=== PATIENT | female | born 1955 | race Caucasian/White ===

== ENCOUNTER 2023-03-02 14:30 | Outpatient (RCR) | payer MEDICARE, SELFPAY ==
--- NOTE | 2022-12-10 12:02 | PT.OIE ---
Current Diagnoses Mixed incontinence (12/10/22) Fecal smearing (12/10/22) Visit Care Team Role Provider Type Blanco Stewart MD Primary Care Provider Non-Staff Specialty: Internal Medicine Address: [facility] [address], [place], [address] Email: Destiny Mckeon DO Attending Provider Non-Staff Family Provider Referring Provider Specialty: HIGHWAY MAINTAINER Address: [facility] [address], [place], [address] Email: Physical Therapy Initial Evaluation PT-OP-A Visit Information Start: 12/09/22 11:30 Freq: Status: Active Protocol: Document 12/10/22 09:47 AMB (Rec: 12/10/22 10:33 AMB [id number]) Out-Patient Physical Therapy Visit Information Visit Information Visit Type Initial Evaluation Visit Start Time 09:45 Visit Stop Time 10:30 Total Visit Minutes 45 Visit Number 1 PT-OP-B Current Condition Start: 12/09/22 11:30 Freq: Status: Active Protocol: Document 12/10/22 09:47 AMB (Rec: 12/10/22 10:33 AMB [id number]) Current Condition History of Current Condition Onset Date chronic Current Complaints Leaking History of Current Condition Had difficulty voiding with bowel movements after spinal surgery. R numbness in the leg. Then developed leaking with coughing about 10 years later. Urgency developed later. Gets up for nocturia 1x/night. 1x/day getting urge incontinence. Can leak a little bit with water aerobics . Does have fecal incontinence sometimes after a bowel movement, just liquid. Very rarely makes it the whole hour in the pool without having to void. Once a day for bowel movements. Personal Factors Other Personal Factors That May Effect Hx spinal cord tumor removal Therapy/Recovery C5-C6. PT-OP-I Pelvic Floor Start: 12/09/22 11:30 Freq: Status: Active Protocol: Document 12/10/22 09:47 AMB (Rec: 12/10/22 10:33 AMB [id number]) Pelvic Floor Assessment Urine Leakage Size Large Leakage Cause Cough,Sneeze,Urge Leaks Per Day 1 Nocturia 1 Urine Pad Type Maxi Pad Pelvic Clock Pelvic Clock 12-3 Atrophy Pelvic Clock 3-6 Atrophy Pelvic Clock 6-9 Atrophy Pelvic Clock 9-12 Atrophy Prolapse Cystocele Grade 1 Perineal Descent Resting Absent Bearing Absent Contraction Ability Voluntary Contraction Weak Voluntary Relaxation Weak Manual Muscle Testing Left 2 Manual Muscle Testing Right 2 Manual Muscle Testing Anterior 2 Manual Muscle Testing Posterior 2 Comments Pelvic Floor Comments Pt reported reduced sensation vaginally, difficult time with sensation throughout the pelvic girdle and R leg s/p spine surgery PT-OP-T Assessment and Plan Start: 12/09/22 11:30 Freq: Status: Active Protocol: Document 12/10/22 09:45 AMB (Rec: 12/21/22 12:02 AMB [id number]) Physical Therapy Assessment Rehab Potential Rehabilitation Potential Good Evaluation Complexity Number of Personal Factors/Comorbidities 1-2 Number of Body Systems Impaired 3 Clinical Presentation at Evaluation Evolving Impairments Impairments Functional Activities, Sensation,Strength Goals Two Impairment Continence Short Term Goal (STG) [place] will cough without leaking urine. STG Duration 5 weeks Custodial Goal (LTG) [place] will completely void her bowels without fecal incontinence. LTG Duration 10 weeks One Impairment Pelvic floor strength Short Term Goal (STG) [place] will contract her pelvic floor for 10 seconds in standing. STG Duration 5 weeks Custodial Goal (LTG) [place] will contract her pelvic floor muscles while moving from sitting to standing. LTG Duration 10 weeks Assessment Summary Assessment [place] attends physical therapy with symptoms of urgency frequency and stress incontinence. Both urinary and fecal. Fecal incontinence is generally after the daily bowel movement. Her pelvic floor is weak, and she has difficulty with sensation, likely related to her spinal cord tumor surgery. She did not show signs of rectocele, but did have mild cystocele. She will benefit from pelvic floor therapy for pelvic floor strengthening and urinary urgency and frequency reduction, although her reduced sensation may pose a limiting factor to her rehabilitation. Physical Therapy Plan Frequency and Duration Frequency of Treatment 1x/Week Duration of treatment (weeks) 10 Plan of Care Start Date 12/10/22 Plan of Care End Date 02/18/23 Therapeutic Interventions Therapeutic Interventions Home Exercise Program,Manual Therapy,Neuromuscular Re- education,Self-Care/Home Management,Therapeutic Activities,Therapeutic Exercises Modalities Biofeedback,Electric Stimulation Next Visit Focus/Plan Next Note Type Treatment Note Next Visit Plan sEMG vs progressive HEP started in seated vs supine. Follow up on urgency.
--- NOTE | 2022-12-10 12:03 | PT.OPPOC ---
Physical, Occupational & Speech Therapy At [facility] Current Diagnoses Mixed incontinence (12/10/22) Fecal smearing (12/10/22) Visit Care Team Role Provider Type Blanco Stewart MD Primary Care Provider Non-Staff Specialty: Internal Medicine Address: [facility] [address], [place], [address] Email: Destiny Mckeon DO Attending Provider Non-Staff Family Provider Referring Provider Specialty: PRINTING SHOP SUPERVISOR Address: [address], [place], [address] Email: Plan Of Care PT-OP-T Assessment and Plan Start: 12/09/22 11:30 Freq: Status: Active Protocol: Document 12/10/22 09:45 AMB (Rec: 12/21/22 12:02 AMB [id number]) Physical Therapy Assessment Rehab Potential Rehabilitation Potential Good Evaluation Complexity Number of Personal Factors/Comorbidities 1-2 Number of Body Systems Impaired 3 Clinical Presentation at Evaluation Evolving Impairments Impairments Functional Activities, Sensation,Strength Goals Two Impairment Continence Short Term Goal (STG) [place] will cough without leaking urine. STG Duration 5 weeks Residential Goal (LTG) [place] will completely void her bowels without fecal incontinence. LTG Duration 10 weeks One Impairment Pelvic floor strength Short Term Goal (STG) [place] will contract her pelvic floor for 10 seconds in standing. STG Duration 5 weeks Hand Cementer Goal (LTG) [place] will contract her pelvic floor muscles while moving from sitting to standing. LTG Duration 10 weeks Assessment Summary Assessment [place] attends physical therapy with symptoms of urgency frequency and stress incontinence. Both urinary and fecal. Fecal incontinence is generally after the daily bowel movement. Her pelvic floor is weak, and she has difficulty with sensation, likely related to her spinal cord tumor surgery. She did not show signs of rectocele, but did have mild cystocele. She will benefit from pelvic floor therapy for pelvic floor strengthening and urinary urgency and frequency reduction, although her reduced sensation may pose a limiting factor to her rehabilitation. Physical Therapy Plan Frequency and Duration Frequency of Treatment 1x/Week Duration of treatment (weeks) 10 Plan of Care Start Date 12/10/22 Plan of Care End Date 02/18/23 Therapeutic Interventions Therapeutic Interventions Home Exercise Program,Manual Therapy,Neuromuscular Re- education,Self-Care/Home Management,Therapeutic Activities,Therapeutic Exercises Modalities Biofeedback,Electric Stimulation Next Visit Focus/Plan Next Note Type Treatment Note Next Visit Plan sEMG vs progressive HEP started in seated vs supine. Follow up on urgency. Plan of Care Dates Plan of Care Start Date 12/10/22 Plan of Care End Date 02/18/23 Electronically Signed by: Dena Chappell, PT 12/21/22 [id number] If you are in agreement with this Plan of Care, please return a signed and dated copy. I have reviewed this Plan of Care and certify that the skilled therapy services above are required to meet the patient?s needs. Physician Signature Date Printed Name and Credentials Clinical Instructor Signature Printed Name and Credentials
--- NOTE | 2023-01-28 14:04 | PT.OTN ---
Current Diagnoses Mixed incontinence (01/28/23) Fecal smearing (01/28/23) Physical Therapy Treatment Note PT-OP-A Visit Information Start: 12/09/22 11:30 Freq: Status: Active Protocol: Document 01/28/23 12:01 AMB (Rec: 01/28/23 12:47 AMB [id number]) Out-Patient Physical Therapy Visit Information Visit Information Visit Type Treatment Note Visit Start Time 12:00 Visit Stop Time 12:45 Total Visit Minutes 45 Visit Number 2 PT-OP-B Current Condition Start: 12/09/22 11:30 Freq: Status: Active Protocol: Document 12/10/22 09:47 AMB (Rec: 12/10/22 10:33 AMB [id number]) Current Condition History of Current Condition Onset Date chronic Current Complaints Leaking History of Current Condition Had difficulty voiding with bowel movements after spinal surgery. R numbness in the leg. Then developed leaking with coughing about 10 years later. Urgency developed later. Gets up for nocturia 1x/night. 1x/day getting urge incontinence. Can leak a little bit with water aerobics . Does have fecal incontinence sometimes after a bowel movement, just liquid. Very rarely makes it the whole hour in the pool without having to void. Once a day for bowel movements. Personal Factors Other Personal Factors That May Effect Hx spinal cord tumor removal Therapy/Recovery C5-C6. PT-OP-C Subjective Start: 12/09/22 11:30 Freq: Status: Active Protocol: Document 01/28/23 12:01 AMB (Rec: 01/28/23 12:47 AMB [id number]) OP-PT Subjective Patient Comments Patient Comments Having a difficult time doing the exercises every day. One instance of urge incontinence in the last 2 months. PT-OP-I Pelvic Floor Start: 12/09/22 11:30 Freq: Status: Active Protocol: Document 12/10/22 09:47 AMB (Rec: 12/10/22 10:33 AMB [id number]) Pelvic Floor Assessment Urine Leakage Size Large Leakage Cause Cough,Sneeze,Urge Leaks Per Day 1 Nocturia 1 Urine Pad Type Maxi Pad Pelvic Clock Pelvic Clock 12-3 Atrophy Pelvic Clock 3-6 Atrophy Pelvic Clock 6-9 Atrophy Pelvic Clock 9-12 Atrophy Prolapse Cystocele Grade 1 Perineal Descent Resting Absent Bearing Absent Contraction Ability Voluntary Contraction Weak Voluntary Relaxation Weak Manual Muscle Testing Left 2 Manual Muscle Testing Right 2 Manual Muscle Testing Anterior 2 Manual Muscle Testing Posterior 2 Comments Pelvic Floor Comments Pt reported reduced sensation vaginally, difficult time with sensation throughout the pelvic girdle and R leg s/p spine surgery PT-OP-Q Treatments Start: 12/09/22 11:30 Freq: Status: Active Protocol: Document 01/28/23 13:57 AMB (Rec: 01/28/23 14:00 AMB [id number]) Therapeutic Exercises Sitting Exercises 2 Sitting Exercise Name long holds, quick flicks Reps/Minutes 2x10 1 Sitting Exercise Name sit to stand Reps/Minutes 2x10 Comments wiht pelvic floor contract Standing Exercises 1 Standing Exercise Name long holds, quick flicks in standing Reps/Minutes 2x10 PT-OP-T Assessment and Plan Start: 12/09/22 11:30 Freq: Status: Active Protocol: Document 01/28/23 12:01 AMB (Rec: 01/28/23 12:47 AMB [id number]) Physical Therapy Assessment Goals Two Impairment Continence Short Term Goal (STG) [place] will cough without leaking urine. STG Duration 5 weeks Intermediate Goal (LTG) [place] will completely void her bowels without fecal incontinence. LTG Duration 10 weeks One Impairment Pelvic floor strength Short Term Goal (STG) [place] will contract her pelvic floor for 10 seconds in standing. STG Duration 5 weeks Intermediate Goal (LTG) [place] will contract her pelvic floor muscles while moving from sitting to standing. LTG Duration 10 weeks Assessment Summary Assessment [place] is improving wiht her urgency, continues to go to the bathroom every 30 minutes with swimming. Would encourage her in standing exercises and to up her frequency of exercise. Limited sensation is a limiting factor. Physical Therapy Plan Frequency and Duration Frequency of Treatment 1x/Week Duration of treatment (weeks) 10 Plan of Care Start Date 12/10/22 Plan of Care End Date 02/18/23 Therapeutic Interventions Therapeutic Interventions Home Exercise Program,Manual Therapy,Neuromuscular Re- education,Self-Care/Home Management,Therapeutic Activities,Therapeutic Exercises Modalities Biofeedback,Electric Stimulation Next Visit Focus/Plan Next Note Type Treatment Note Next Visit Plan sEMG vs progressive HEP started in seated vs supine. Follow up on urgency.
--- NOTE | 2023-02-04 15:55 | PT.OTN ---
Current Diagnoses Mixed incontinence (02/04/23) Fecal smearing (02/04/23) Physical Therapy Treatment Note PT-OP-A Visit Information Start: 12/09/22 11:30 Freq: Status: Active Protocol: Document 02/04/23 14:34 AMB (Rec: 02/04/23 15:15 AMB [id number]) Out-Patient Physical Therapy Visit Information Visit Information Visit Type Treatment Note Visit Start Time 14:30 Visit Stop Time 15:15 Total Visit Minutes 45 Visit Number 3 PT-OP-B Current Condition Start: 12/09/22 11:30 Freq: Status: Active Protocol: Document 12/10/22 09:47 AMB (Rec: 12/10/22 10:33 AMB [id number]) Current Condition History of Current Condition Onset Date chronic Current Complaints Leaking History of Current Condition Had difficulty voiding with bowel movements after spinal surgery. R numbness in the leg. Then developed leaking with coughing about 10 years later. Urgency developed later. Gets up for nocturia 1x/night. 1x/day getting urge incontinence. Can leak a little bit with water aerobics . Does have fecal incontinence sometimes after a bowel movement, just liquid. Very rarely makes it the whole hour in the pool without having to void. Once a day for bowel movements. Personal Factors Other Personal Factors That May Effect Hx spinal cord tumor removal Therapy/Recovery C5-C6. PT-OP-C Subjective Start: 12/09/22 11:30 Freq: Status: Active Protocol: Document 02/04/23 14:34 AMB (Rec: 02/04/23 15:15 AMB [id number]) OP-PT Subjective Patient Comments Patient Comments Urgency is getting worse. PT-OP-I Pelvic Floor Start: 12/09/22 11:30 Freq: Status: Active Protocol: Document 12/10/22 09:47 AMB (Rec: 12/10/22 10:33 AMB [id number]) Pelvic Floor Assessment Urine Leakage Size Large Leakage Cause Cough,Sneeze,Urge Leaks Per Day 1 Nocturia 1 Urine Pad Type Maxi Pad Pelvic Clock Pelvic Clock 12-3 Atrophy Pelvic Clock 3-6 Atrophy Pelvic Clock 6-9 Atrophy Pelvic Clock 9-12 Atrophy Prolapse Cystocele Grade 1 Perineal Descent Resting Absent Bearing Absent Contraction Ability Voluntary Contraction Weak Voluntary Relaxation Weak Manual Muscle Testing Left 2 Manual Muscle Testing Right 2 Manual Muscle Testing Anterior 2 Manual Muscle Testing Posterior 2 Comments Pelvic Floor Comments Pt reported reduced sensation vaginally, difficult time with sensation throughout the pelvic girdle and R leg s/p spine surgery PT-OP-Q Treatments Start: 12/09/22 11:30 Freq: Status: Active Protocol: Document 02/04/23 14:34 AMB (Rec: 02/04/23 15:15 AMB [id number]) Therapeutic Exercises Sitting Exercises 2 Sitting Exercise Name long holds, quick flicks Reps/Minutes 2x10 1 Sitting Exercise Name sit to stand Reps/Minutes 2x10 Comments wiht pelvic floor contract Neuro Re-Education Treatment Other Activities sEMG Comments pt with poor ability to hold contraction, fades very quickly. PT-OP-T Assessment and Plan Start: 12/09/22 11:30 Freq: Status: Active Protocol: Document 02/04/23 14:34 AMB (Rec: 02/04/23 15:15 AMB [id number]) Physical Therapy Assessment Goals Two Impairment Continence Short Term Goal (STG) [place] will cough without leaking urine. STG Duration 5 weeks Quality Control Specialist Goal (LTG) [place] will completely void her bowels without fecal incontinence. LTG Duration 10 weeks One Impairment Pelvic floor strength Short Term Goal (STG) [place] will contract her pelvic floor for 10 seconds in standing. STG Duration 5 weeks Shelter Goal (LTG) [place] will contract her pelvic floor muscles while moving from sitting to standing. LTG Duration 10 weeks Assessment Summary Assessment max 12.4, avg 5.5 sEMG. Encouraged pt to work to increase time between voids, calming bladder, knowing that she recently voided and that if she is urinating for 5 seconds that her bladder was not full and that was a false sensation. Physical Therapy Plan Frequency and Duration Frequency of Treatment 1x/Week Duration of treatment (weeks) 10 Plan of Care Start Date 12/10/22 Plan of Care End Date 02/18/23 Therapeutic Interventions Therapeutic Interventions Home Exercise Program,Manual Therapy,Neuromuscular Re- education,Self-Care/Home Management,Therapeutic Activities,Therapeutic Exercises Modalities Biofeedback,Electric Stimulation Next Visit Focus/Plan Next Note Type Treatment Note Next Visit Plan sEMG vs progressive HEP started in seated vs supine. Follow up on urgency.
--- NOTE | 2023-02-11 21:32 | PT.OTN ---
Current Diagnoses Mixed incontinence (02/11/23) Fecal smearing (02/11/23) Physical Therapy Treatment Note PT-OP-A Visit Information Start: 12/09/22 11:30 Freq: Status: Active Protocol: Document 02/11/23 10:49 AMB (Rec: 02/11/23 11:31 AMB [id number]) Out-Patient Physical Therapy Visit Information Visit Information Visit Type Treatment Note Visit Start Time 10:45 Visit Stop Time 11:30 Total Visit Minutes 45 Visit Number 4 PT-OP-B Current Condition Start: 12/09/22 11:30 Freq: Status: Active Protocol: Document 12/10/22 09:47 AMB (Rec: 12/10/22 10:33 AMB [id number]) Current Condition History of Current Condition Onset Date chronic Current Complaints Leaking History of Current Condition Had difficulty voiding with bowel movements after spinal surgery. R numbness in the leg. Then developed leaking with coughing about 10 years later. Urgency developed later. Gets up for nocturia 1x/night. 1x/day getting urge incontinence. Can leak a little bit with water aerobics . Does have fecal incontinence sometimes after a bowel movement, just liquid. Very rarely makes it the whole hour in the pool without having to void. Once a day for bowel movements. Personal Factors Other Personal Factors That May Effect Hx spinal cord tumor removal Therapy/Recovery C5-C6. PT-OP-C Subjective Start: 12/09/22 11:30 Freq: Status: Active Protocol: Document 02/11/23 21:26 AMB (Rec: 02/28/23 21:30 AMB [id number]) OP-PT Subjective Patient Comments Patient Comments Pt reports she has made progress and can go 5-10 more minutes in the pool without needing to get out, hoping to continue to progress until she can go the whole hour- now needs to get out after about 40 min. PT-OP-I Pelvic Floor Start: 12/09/22 11:30 Freq: Status: Active Protocol: Document 12/10/22 09:47 AMB (Rec: 12/10/22 10:33 AMB [id number]) Pelvic Floor Assessment Urine Leakage Size Large Leakage Cause Cough,Sneeze,Urge Leaks Per Day 1 Nocturia 1 Urine Pad Type Maxi Pad Pelvic Clock Pelvic Clock 12-3 Atrophy Pelvic Clock 3-6 Atrophy Pelvic Clock 6-9 Atrophy Pelvic Clock 9-12 Atrophy Prolapse Cystocele Grade 1 Perineal Descent Resting Absent Bearing Absent Contraction Ability Voluntary Contraction Weak Voluntary Relaxation Weak Manual Muscle Testing Left 2 Manual Muscle Testing Right 2 Manual Muscle Testing Anterior 2 Manual Muscle Testing Posterior 2 Comments Pelvic Floor Comments Pt reported reduced sensation vaginally, difficult time with sensation throughout the pelvic girdle and R leg s/p spine surgery PT-OP-Q Treatments Start: 12/09/22 11:30 Freq: Status: Active Protocol: Document 02/11/23 21:26 AMB (Rec: 02/28/23 21:30 AMB [id number]) Therapeutic Exercises Sitting Exercises 2 Sitting Exercise Name long holds, quick flicks Reps/Minutes 2x10 1 Sitting Exercise Name sit to stand Reps/Minutes 2x10 Comments wiht pelvic floor contract Standing Exercises 1 Standing Exercise Name long holds, quick flicks in standing Reps/Minutes 2x10 PT-OP-T Assessment and Plan Start: 12/09/22 11:30 Freq: Status: Active Protocol: Document 02/11/23 10:49 AMB (Rec: 02/11/23 11:31 AMB [id number]) Physical Therapy Assessment Goals Two Impairment Continence Short Term Goal (STG) [place] will cough without leaking urine. STG Duration MET Assembler Camper Goal (LTG) [place] will completely void her bowels without fecal incontinence. LTG Duration 10 weeks One Impairment Pelvic floor strength Short Term Goal (STG) [place] will contract her pelvic floor for 10 seconds in standing. STG Duration 5 weeks Assembler Camper Goal (LTG) [place] will contract her pelvic floor muscles while moving from sitting to standing. LTG Duration MET Assessment Summary Assessment [place] has met half of her goals. Avg 8, max 17. for long holds. max 20 avg 8 for quick flicks. [place] has attended 4 visit of physical therapy. She has shown some improvement with her pelvic floor strength. her progress is limited by reduced sensation s/p spinal surgery. Her urgency does seem to be improving. Pt would like to follow up in a few weeks to reassess strength/urgency and to work on progressing exercise program. Physical Therapy Plan Frequency and Duration Frequency of Treatment 1x/Week Duration of treatment (weeks) 5 Plan of Care Start Date 02/11/23 Plan of Care End Date 03/11/23 Therapeutic Interventions Therapeutic Interventions Home Exercise Program,Manual Therapy,Neuromuscular Re- education,Self-Care/Home Management,Therapeutic Activities,Therapeutic Exercises Modalities Biofeedback,Electric Stimulation Next Visit Focus/Plan Next Note Type Treatment Note Next Visit Plan sEMG vs progressive HEP started in seated vs supine. Follow up on urgency.
--- NOTE | 2023-02-11 21:48 | PT.OPPOC ---
Physical, Occupational & Speech Therapy At [facility] Current Diagnoses Mixed incontinence (02/11/23) Fecal smearing (02/11/23) Visit Care Team Role Provider Type Blanco Stewart MD Primary Care Provider Non-Staff Specialty: Internal Medicine Address: [address], [place], [address] Email: Destiny Mckeon DO Attending Provider Non-Staff Family Provider Referring Provider Specialty: BANK VAULT CLERK Address: [address], [place], [address] Email: Plan Of Care PT-OP-T Assessment and Plan Start: 12/09/22 11:30 Freq: Status: Active Protocol: Document 02/11/23 10:49 AMB (Rec: 02/11/23 11:31 AMB [id number]) Physical Therapy Assessment Goals Two Impairment Continence Short Term Goal (STG) [place] will cough without leaking urine. STG Duration MET Long-Term Goal (LTG) [place] will completely void her bowels without fecal incontinence. LTG Duration 10 weeks One Impairment Pelvic floor strength Short Term Goal (STG) [place] will contract her pelvic floor for 10 seconds in standing. STG Duration 5 weeks Media Strategist Goal (LTG) [place] will contract her pelvic floor muscles while moving from sitting to standing. LTG Duration MET Assessment Summary Assessment [place] has met half of her goals. Avg 8, max 17. for long holds. max 20 avg 8 for quick flicks. [place] has attended 4 visit of physical therapy. She has shown some improvement with her pelvic floor strength. her progress is limited by reduced sensation s/p spinal surgery. Her urgency does seem to be improving. Pt would like to follow up in a few weeks to reassess strength/urgency and to work on progressing exercise program. Physical Therapy Plan Frequency and Duration Frequency of Treatment 1x/Week Duration of treatment (weeks) 5 Plan of Care Start Date 02/11/23 Plan of Care End Date 03/11/23 Therapeutic Interventions Therapeutic Interventions Home Exercise Program,Manual Therapy,Neuromuscular Re- education,Self-Care/Home Management,Therapeutic Activities,Therapeutic Exercises Modalities Biofeedback,Electric Stimulation Next Visit Focus/Plan Next Note Type Treatment Note Next Visit Plan sEMG vs progressive HEP started in seated vs supine. Follow up on urgency. Plan of Care Dates Plan of Care Start Date 02/11/23 Plan of Care End Date 03/11/23 Electronically Signed by: Dena Chappell, PT 02/28/23 1997 If you are in agreement with this Plan of Care, please return a signed and dated copy. I have reviewed this Plan of Care and certify that the skilled therapy services above are required to meet the patient?s needs. Physician Signature Date Printed Name and Credentials Clinical Instructor Signature Printed Name and Credentials
--- NOTE | 2023-03-02 10:38 | PT.OTN ---
Current Diagnoses Mixed incontinence (03/02/23) Fecal smearing (03/02/23) Physical Therapy Treatment Note PT-OP-A Visit Information Start: 12/09/22 11:30 Freq: Status: Active Protocol: Document 03/02/23 14:32 AMB (Rec: 03/02/23 15:20 AMB [id number]) Out-Patient Physical Therapy Visit Information Visit Information Visit Type Treatment Note Visit Start Time 14:30 Visit Stop Time 15:15 Total Visit Minutes 45 Visit Number 5 PT-OP-B Current Condition Start: 12/09/22 11:30 Freq: Status: Active Protocol: Document 12/10/22 09:47 AMB (Rec: 12/10/22 10:33 AMB [id number]) Current Condition History of Current Condition Onset Date chronic Current Complaints Leaking History of Current Condition Had difficulty voiding with bowel movements after spinal surgery. R numbness in the leg. Then developed leaking with coughing about 10 years later. Urgency developed later. Gets up for nocturia 1x/night. 1x/day getting urge incontinence. Can leak a little bit with water aerobics . Does have fecal incontinence sometimes after a bowel movement, just liquid. Very rarely makes it the whole hour in the pool without having to void. Once a day for bowel movements. Personal Factors Other Personal Factors That May Effect Hx spinal cord tumor removal Therapy/Recovery C5-C6. PT-OP-C Subjective Start: 12/09/22 11:30 Freq: Status: Active Protocol: Document 03/02/23 14:32 AMB (Rec: 03/02/23 15:20 AMB [id number]) OP-PT Subjective Patient Comments Patient Comments Pt feels like she has back slid a bit. PT-OP-I Pelvic Floor Start: 12/09/22 11:30 Freq: Status: Active Protocol: Document 12/10/22 09:47 AMB (Rec: 12/10/22 10:33 AMB [id number]) Pelvic Floor Assessment Urine Leakage Size Large Leakage Cause Cough,Sneeze,Urge Leaks Per Day 1 Nocturia 1 Urine Pad Type Maxi Pad Pelvic Clock Pelvic Clock 12-3 Atrophy Pelvic Clock 3-6 Atrophy Pelvic Clock 6-9 Atrophy Pelvic Clock 9-12 Atrophy Prolapse Cystocele Grade 1 Perineal Descent Resting Absent Bearing Absent Contraction Ability Voluntary Contraction Weak Voluntary Relaxation Weak Manual Muscle Testing Left 2 Manual Muscle Testing Right 2 Manual Muscle Testing Anterior 2 Manual Muscle Testing Posterior 2 Comments Pelvic Floor Comments Pt reported reduced sensation vaginally, difficult time with sensation throughout the pelvic girdle and R leg s/p spine surgery PT-OP-Q Treatments Start: 12/09/22 11:30 Freq: Status: Active Protocol: Document 03/02/23 14:25 AMB (Rec: 04/08/23 10:29 AMB [id number]) Therapeutic Exercises Supine Exercises kegels Supine Exercise Name long holds quick flicks Comments in hooklying, vc breathing Sitting Exercises 2 Sitting Exercise Name long holds, quick flicks Reps/Minutes 2x10 Neuro Re-Education Treatment Other Activities sEMG Reps/Duration 25 min Comments Better ability to contract, long holds remain challenging, see assessment. PT-OP-T Assessment and Plan Start: 12/09/22 11:30 Freq: Status: Active Protocol: Document 03/02/23 14:32 AMB (Rec: 03/02/23 15:20 AMB [id number]) Physical Therapy Assessment Goals Two Impairment Continence Short Term Goal (STG) [place] will cough without leaking urine. STG Duration MET Shelter Goal (LTG) [place] will completely void her bowels without fecal incontinence. LTG Duration 10 weeks One Impairment Pelvic floor strength Short Term Goal (STG) [place] will contract her pelvic floor for 10 seconds in standing. STG Duration 5 weeks Shelter Goal (LTG) [place] will contract her pelvic floor muscles while moving from sitting to standing. LTG Duration MET Assessment Summary Assessment Pt struggled with longer holds today. 7.6 avg, 30 max for long holds. Overall [place] feels she is ready for discharge, she continues to be challenged by longer holds, but is ready to be independent with her HEP. Physical Therapy Plan Frequency and Duration Frequency of Treatment 1x/Week Duration of treatment (weeks) 5 Plan of Care Start Date 02/11/23 Plan of Care End Date 03/11/23 Therapeutic Interventions Therapeutic Interventions Home Exercise Program,Manual Therapy,Neuromuscular Re- education,Self-Care/Home Management,Therapeutic Activities,Therapeutic Exercises Modalities Biofeedback,Electric Stimulation Next Visit Focus/Plan Next Note Type Treatment Note Next Visit Plan sEMG vs progressive HEP started in seated vs supine. Follow up on urgency.
--- NOTE | 2023-04-08 10:40 | PT.OPDS ---
Current Diagnoses Mixed incontinence (03/02/23) Fecal smearing (03/02/23) Visit Care Team Role Provider Type Blanco Stewart MD Primary Care Provider Non-Staff Specialty: Internal Medicine Address: [facility] [address], [place], [address] Email: Destiny Mckeon DO Attending Provider Non-Staff Family Provider Referring Provider Specialty: DELIMBER OPERATOR Address: [facility] [address], [place], [address] Email: Visit Number Visit Number 5 Discharge Summary PT-OP-B Current Condition Start: 12/09/22 11:30 Freq: Status: Active Protocol: Document 12/10/22 09:47 AMB (Rec: 12/10/22 10:33 AMB [id number]) Current Condition History of Current Condition Onset Date chronic Current Complaints Leaking History of Current Condition Had difficulty voiding with bowel movements after spinal surgery. R numbness in the leg. Then developed leaking with coughing about 10 years later. Urgency developed later. Gets up for nocturia 1x/night. 1x/day getting urge incontinence. Can leak a little bit with water aerobics . Does have fecal incontinence sometimes after a bowel movement, just liquid. Very rarely makes it the whole hour in the pool without having to void. Once a day for bowel movements. Personal Factors Other Personal Factors That May Effect Hx spinal cord tumor removal Therapy/Recovery C5-C6. PT-OP-C Subjective Start: 12/09/22 11:30 Freq: Status: Active Protocol: Document 03/02/23 14:32 AMB (Rec: 03/02/23 15:20 AMB [id number]) OP-PT Subjective Patient Comments Patient Comments Pt feels like she has back slid a bit. PT-OP-I Pelvic Floor Start: 12/09/22 11:30 Freq: Status: Active Protocol: Document 12/10/22 09:47 AMB (Rec: 12/10/22 10:33 AMB [id number]) Pelvic Floor Assessment Urine Leakage Size Large Leakage Cause Cough,Sneeze,Urge Leaks Per Day 1 Nocturia 1 Urine Pad Type Maxi Pad Pelvic Clock Pelvic Clock 12-3 Atrophy Pelvic Clock 3-6 Atrophy Pelvic Clock 6-9 Atrophy Pelvic Clock 9-12 Atrophy Prolapse Cystocele Grade 1 Perineal Descent Resting Absent Bearing Absent Contraction Ability Voluntary Contraction Weak Voluntary Relaxation Weak Manual Muscle Testing Left 2 Manual Muscle Testing Right 2 Manual Muscle Testing Anterior 2 Manual Muscle Testing Posterior 2 Comments Pelvic Floor Comments Pt reported reduced sensation vaginally, difficult time with sensation throughout the pelvic girdle and R leg s/p spine surgery PT-OP-T Assessment and Plan Start: 12/09/22 11:30 Freq: Status: Active Protocol: Document 03/02/23 14:32 AMB (Rec: 03/02/23 15:20 AMB [id number]) Physical Therapy Assessment Goals Two Impairment Continence Short Term Goal (STG) [place] will cough without leaking urine. STG Duration MET [facility] Goal (LTG) [place] will completely void her bowels without fecal incontinence. LTG Duration 10 weeks One Impairment Pelvic floor strength Short Term Goal (STG) [place] will contract her pelvic floor for 10 seconds in standing. STG Duration 5 weeks Brewery Technician Goal (LTG) [place] will contract her pelvic floor muscles while moving from sitting to standing. LTG Duration MET Assessment Summary Assessment Pt struggled with longer holds today. 7.6 avg, 30 max for long holds. Overall [place] feels she is ready for discharge, she continues to be challenged by longer holds, but is ready to be independent with her HEP. Physical Therapy Plan Frequency and Duration Frequency of Treatment 1x/Week Duration of treatment (weeks) 5 Plan of Care Start Date 02/11/23 Plan of Care End Date 03/11/23 Therapeutic Interventions Therapeutic Interventions Home Exercise Program,Manual Therapy,Neuromuscular Re- education,Self-Care/Home Management,Therapeutic Activities,Therapeutic Exercises Modalities Biofeedback,Electric Stimulation Next Visit Focus/Plan Next Note Type Treatment Note Next Visit Plan sEMG vs progressive HEP started in seated vs supine. Follow up on urgency.
== END 2023-04-08 12:35 | disposition home or self-care (01) ==
LOC: PHYS 14:30
PROVIDERS: Family Provider Obstetrics & Gynecology; PCP Internal Medicine; Referring Provider Obstetrics & Gynecology; Visit Provider Obstetrics & Gynecology
DX: N39.46 Mixed incontinence (principal); R15.1 Fecal smearing
CPT/HCPCS: 97110; 97112; 97161

== ENCOUNTER → 2023-06-25 13:18 | Outpatient (CLI) | payer MEDICARE, SELFPAY ==
--- NOTE | 2023-06-25 | DI.MG.S_ITS ---
BILATERAL DIGITAL DIAGNOSTIC MAMMOGRAM 3D/2D: 06/25/2023 CLINICAL: Bilateral breast tenderness/thickening underneath. Due for Bilateral exam. Comparison is made to exams dated: 04/24/2022 mammogram - Outside facility, 02/02/2019 mammogram, and 03/29/2021 mammogram - [facility]. There are scattered areas of fibroglandular density in both breasts (category b / 25%-50% glandular tissue). No significant masses, calcifications, or other findings are seen in either breast. IMPRESSION: INCOMPLETE: NEEDS ADDITIONAL IMAGING EVALUATION There is no mammographic abnormality seen in either breast to correspond with the palpable abnormalities, however, targeted ultrasound of the bilateral breasts is recommended and will be performed immediately following this exam. Based on the Tyrer Cuzick model (a risk assessment model) the patient's lifetime risk is 5.2% and her 10 year risk is 3.3%. According to the ACR, ACS, and NCCN guidelines, an annual breast MRI exam along with mammogram is recommended if the patient's lifetime risk is 20% or greater. This exam was interpreted at Station ID: [id number]. NOTE: For mammograms, a report in lay terms will be sent to the patient. Approximately 15% of breast malignancies will not be visualized mammographically. In the management of a palpable breast mass, a negative mammogram must not discourage biopsy of a clinically suspicious lesion. Electronically Signed By: Мария Ruffin M.D. lk/:06/25/2023 14:44:23 ACR BI-RADS Category 0: Incomplete [id number]
--- NOTE | 2023-06-25 | DI.US.S_ITS ---
LIMITED ULTRASOUND OF LEFT BREAST AND AXILLA: 06/25/2023 CLINICAL: Focal left breast pain. Comparison is made to exams dated: 06/25/2023 mammogram - [facility], 04/24/2022 mammogram - Outside facility, 03/29/2021 mammogram, 02/02/2019 mammogram, 02/02/2019 mammogram - [facility], and 02/19/2015 mammogram - Outside facility. Color flow ultrasound of the left breast axilla was performed on the areas of interest. Kaplan scale images of the real-time examination were reviewed. IMPRESSION: NEGATIVE There is no sonographic evidence of malignancy. There is no mammographic or sonographic abnormality seen in the left breast to correspond with the palpable abnormality, however, clinical followup is recommended. Return to annual mammogram screening schedule is recommended. This exam was interpreted at Station ID: [id number]. Electronically Signed By: Мария Ruffin M.D. lk/:06/25/2023 16:47:34 Entry: jewell - 06/26/2023 12:42:34 copy to: Titus Johnston Ultrasound BI-RADS: 1 Negative
--- NOTE | 2023-06-25 14:27 | DI.US.S_ITS ---
ULTRASOUND OF RIGHT BREAST: 06/25/2023 CLINICAL: Focal right breast pain. Comparison is made to exams dated: 06/25/2023 mammogram - [facility], 04/24/2022 mammogram - [facility], 04/24/2022 mammogram - [facility], 03/29/2021 mammogram - [facility], 03/29/2021 mammogram - [facility], and 02/02/2019 mammogram - [facility]. Real-time ultrasound of the right breast was performed on the areas of interest. Kaplan scale images of the real-time examination were reviewed. IMPRESSION: NEGATIVE There is no sonographic evidence of malignancy. There is no mammographic or sonographic abnormality seen in the right breast to correspond with the palpable abnormality, however, clinical followup is recommended. A 1 year screening mammogram is recommended. This exam was interpreted at Station ID: [id number]. Electronically Signed By: Мария Ruffin M.D. lk/:06/25/2023 16:44:53 copy to: Titus Johnston letter sent: Clinical Evaluation Ultrasound BI-RADS: 1 Negative
== END ==
PROVIDERS: Family Provider Obstetrics & Gynecology; PCP Internal Medicine; Referring Provider Internal Medicine; Visit Provider Internal Medicine
DX: N64.4 Mastodynia (principal)
CPT/HCPCS: 76642; 77066; G0279

== ENCOUNTER 2024-05-31 10:22 | Day surgery (SDC) | payer MEDICARE, SELFPAY ==
--- NOTE | 2024-05-31 10:54 | P.OP.COLON_ITS ---
Procedure & Clinicians Study performed: Screening colonoscopy Same procedure as scheduled: Yes Indications: Screening Surgeon: Woodrow Aguilar Procedure Notes Procedure in detail: The history and physical was performed/updated and the patient is ASA class is 2. The procedure was discussed in detail with the patient. Potential risks complications including infection, bleeding, missed diagnosis, perforation, need for surgery, and were explained. Their questions were answered and informed consent was obtained. Patient was brought to the procedure room and placed standard monitoring equipment. The patient's vital signs were monitored continuously throughout the entire procedure. Prior to starting time-out was performed. The patient was placed in the left lateral recumbent position. Procedural sedation was administered by anesthesia. Examination began with a thorough inspection of the perianal area there was no evidence of fissures, fistulae, external hemorrhoids or cutaneous malignancy. The colonoscopy scope was then placed into the anal canal and was advanced to the cecum, which was identified by the ileocecal valve, the appendiceal orifice and the confluence of the taenia. The scope was then slowly withdrawn examining colon thoroughly in all directions, irrigating it of any residual stool. The scope was retroflexed within the rectum The patient tolerated the procedure well. They will be discharged once criteria are met. The prep was of fair quality. The withdrawl time was 7 minutes. FINDINGS * Diverticulosis of distal colon * No mass or polyps Impression: Diverticulosis Post-procedure Recommendations: High fiber diet Plan for aftercare: No need for further colonoscopy unless symptomatic Disposition: same day surgery
--- NOTE | 2024-05-31 10:54 | PM.HP.1 ---
History of Present Illness History of Present Illness Date Patient Seen: 05/31/24 Time Patient Seen: 11:19 Chief complaint: [facility] Narrative: 69-year-old woman here for screening. Last colonoscopy 10 years ago normal. No family history of colon cancer in first-degree relatives. No abdominal concerns today. FOR[facility]LY [facility], [facility] Medical History (Updated 05/31/24 @ 10:47 by Denise Agrawal, RN) Hx of basal cell carcinoma History of anxiety Hx of benign neoplasm of spinal cord Hx of peripheral neuropathy Hx of gastroesophageal reflux (GERD) Hx of chronic arthritis History of COPD History of high cholesterol Hx of diabetes mellitus Surgical History (Updated 05/31/24 @ 10:47 by Denise Agrawal, CHARY) Hx of spinal surgery Hx of blepharoplasty (~2023) Hx of oral surgery Social History Smoking Status: Never smoker alcohol intake: current Meds Home Medications and Allergies Home Medications Medication Instructions Recorded Confirmed Type sodium,potassium,mag sulfates 17.5 See Rx Instructions PO .COMPLEX 05/16/24 Rx gram-3.13 gram-1.6 gram oral soln #354 mL (Suprep Bowel Prep Kit) atorvastatin 20 mg tablet 20 mg PO QPM 05/31/24 05/31/24 History famotidine 20 mg tablet 20 mg PO DAILY 05/31/24 05/31/24 History lysine 1,000 mg tablet 1,000 mg PO DAILY 05/31/24 05/31/24 History metformin 500 mg tablet,extended 1,000 mg PO QAM 05/31/24 05/31/24 History release 24 hr vibegron 75 mg tablet (Gemtesa) 75 mg PO DAILY 05/31/24 05/31/24 History Allergies Allergy/AdvReac Type Severity Reaction Status Date / Time cephalexin [From Keflex] Allergy Rash Verified 05/31/24 10:53 fentanyl Allergy Vomiting Verified 05/31/24 10:53 Sulfa (Sulfonamide Allergy Rash Verified 05/31/24 10:53 Antibiotics) azithromycin AdvReac Nausea Verified 05/31/24 10:53 Exam Narrative Exam Narrative: General adult woman alert oriented no acute distress Chest nonlabored respiration Extremities warm well perfused Assessment & Plan Assessment & Plan narrative: The patient requires colorectal screening and colonoscopy is recommended. Technical details were discussed. Risks, benefits, alternatives explained. Risks including but not limited to myocardial infarction, aspiration, bleeding, pain, missed lesion, incomplete examination, need for further radiographic studies, intestinal injury, and need for major abdominal surgery were discussed. All questions were answered to their satisfaction, and they are in agreement with this plan. Time-Based Coding :: [TOTAL MINUTES] spent with patient and on the chart (including review of chart, obtaining history, exam, reviewing outside data, placing orders, documenting exam and treatment plan, and counseling patient) on [DATE].
[2024-05-31 11:14] VITALS: BP 160/80; PULSE 71; RESP 18; TEMP 36.7; O2SAT 98
[2024-05-31] MEDS: LACTATED RINGERS 1,000 ML 150 ML IV (11:18)
[2024-05-31 11:56] VITALS: BP 140/77; PULSE 61; RESP 21; O2SAT 97
[2024-05-31 12:07] VITALS: BP 140/76; PULSE 62; RESP 21; O2SAT 97
== END 2024-05-31 12:18 | disposition home or self-care (01) ==
PROVIDERS: Family Provider Obstetrics & Gynecology; PCP Internal Medicine; Referring Provider Surgery; Visit Provider Surgery
PROC: 0DJD8ZZ Inspection of Lower Intestinal Tract, Via Natural or Artificial Opening Endoscopic (ICD-10-PCS; CPT 45378; principal; 2024-05-31 11:30)
DX: Z12.11 Encounter for screening for malignant neoplasm of colon (principal); K57.30 Diverticulosis of large intestine without perforation or abscess without bleeding
CPT/HCPCS: G0121; J2704

== ENCOUNTER → 2024-06-27 08:20 | Outpatient (CLI) | payer MEDICARE, SELFPAY ==
--- NOTE | 2024-06-27 08:21 | DI.MG.S_ITS ---
BILATERAL DIGITAL SCREENING MAMMOGRAM 3D/2D WITH CAD: 06/27/2024 CLINICAL: Routine screening. Family history of breast cancer. Comparison is made to exams dated: 06/25/2023 mammogram - [facility], 04/24/2022 mammogram - [facility], and 04/24/2022 mammogram - Outside facility. There are scattered areas of fibroglandular density (category b / 25%-50% glandular tissue). Current study was also evaluated with a Computer Aided Detection (CAD) system. No significant masses, calcifications, or other findings are seen in either breast. There has been no significant interval change. IMPRESSION: NEGATIVE There is no mammographic evidence of malignancy. A 1 year screening mammogram is recommended. Based on the Tyrer Cuzick model (a risk assessment model) the patient's lifetime risk is 4.9% and her 10 year risk is 3.4%. According to the ACR, ACS, and NCCN guidelines, an annual breast MRI exam along with mammogram is recommended if the patient's lifetime risk is 20% or greater. This exam was interpreted at Station ID: [id number]. NOTE: For mammograms, a report in lay terms will be sent to the patient. Approximately 15% of breast malignancies will not be visualized mammographically. In the management of a palpable breast mass, a negative mammogram must not discourage biopsy of a clinically suspicious lesion. Electronically Signed By: Robin escalona/torres:06/27/2024 08:59:36 copy to: Titus Johnston letter sent: Normal Exam ACR BI-RADS Category 1: Negative
== END ==
PROVIDERS: Family Provider Obstetrics & Gynecology; PCP Internal Medicine; Referring Provider Internal Medicine; Visit Provider Internal Medicine
DX: Z12.31 Encounter for screening mammogram for malignant neoplasm of breast (principal); Z80.3 Family history of malignant neoplasm of breast
CPT/HCPCS: 77063; 77067

== ENCOUNTER → 2025-02-01 12:22 | Outpatient (CLI) | payer MEDICARE, SELFPAY ==
--- NOTE | 2025-02-01 12:25 | DI.RAD.S_ITS ---
PROCEDURE: XR DEXA AXIAL SKELETON INDICATIONS: osteoporosis screening COMPARISON: None. FINDINGS: Lumbar Spine: Bone mineral density 0.926 g/cm2, T score -1.2. Left Femoral Neck: Bone mineral density 0.867 g/cm2, T score 0.2. Left Hip: Bone mineral density 1.029 g/cm2, T score 0.7. Fracture Risk Calculation (when applicable): 10-year fracture risk of a major osteoporotic fracture 6 point percent and of a hip fracture 0.4 percent. (T score greater or equal to -1.0 to: NORMAL) (T score from -1.1 to -2.4: OSTEOPENIA) (T score less than or equal to -2.5: OSTEOPOROSIS) IMPRESSION: Minimal osteopenia in the lumbar spine. Follow-up guidelines as follows: Osteoporosis: Consider a repeat DEXA and Vertebral Fracture Assessment (VFA) exam in 2 years or sooner if medically necessary, to reassess this patient's status. Osteopenia: Consider a repeat DEXA in 2-3 years to reassess this patient's status, or if there is a new clinical indication. Normal: Consider a repeat DEXA in 5 years or sooner, or if there is a new clinical indication. All treatment decisions require clinical judgment and consideration of individual patient factors, including patient preferences, comorbidities, previous drug use, risk factors not captured in the FRAX model (e.g., frailty, falls, vitamin D deficiency, increased bone turnover, interval significant decline in bone density ) and possible under- or over-estimation of fracture risk by FRAX. In addition, the NOF Guide recommends that FDA-approved medical therapies be considered in postmenopausal women and men age >= 50 years with a: * Hip or vertebral (clinical or morphometric) fracture * T-score of <=-2.5 at the spine or hip * Ten-year fracture probability by FRAX of >= 3% for hip fracture or >=20% for major osteoporotic fracture. Dictated by: Elba Colon M.D. on 02/01/2025 at 16:08 Approved by: Elba Colon M.D. on 02/01/2025 at 16:09
== END ==
PROVIDERS: Family Provider Obstetrics & Gynecology; PCP Family Medicine; Referring Provider Family Medicine; Visit Provider Family Medicine
DX: M85.89 Other specified disorders of bone density and structure, multiple sites (principal); Z78.0 Asymptomatic menopausal state
CPT/HCPCS: 77080

== ENCOUNTER → 2025-08-25 15:34 | Outpatient (CLI) | payer MEDICARE, SELFPAY ==
--- NOTE | 2025-08-25 15:35 | DI.MG.S_ITS ---
MM screening mammo BI: 08/25/2025. BI-RADS: 1 CLINICAL: 70-year old female for bilateral screening mammogram. Tyrer-Cuzick lifetime risk of 4.3%. No personal or first-degree family history of breast cancer. PRIOR EXAMS 06/27/2024, 06/25/2023, 04/24/2022, 03/29/2021. MAMMOGRAPHY TECHNIQUE: 2D and 3D (tomosynthesis) digital mammographic views obtained, with additional images as needed for full coverage. Current study was also evaluated with a Computer Aided Detection (CAD) system. DENSITY B. There are scattered areas of fibroglandular density. MAMMOGRAPHY FINDINGS Bilateral: No suspicious mass, asymmetry, microcalcification, or other abnormality seen. IMPRESSION: * No evidence of malignancy. RECOMMENDATIONS Bilateral * Annual screening mammography. OVERALL ASSESSMENT CATEGORY BI-RADS-1: Negative. The [employer] recommends annual screening mammography beginning at age 40 for women with average risk of breast cancer. ELECTRONICALLY SIGNED: Catherine Flores M.D. on 08/29/2025 at 09:07:07 AM PT Interpreting Station ID: [id number]
== END ==
LOC: MAMMO 15:35
PROVIDERS: Family Provider Family Medicine; PCP Family Medicine; Referring Provider Family Medicine; Visit Provider Family Medicine
DX: Z12.31 Encounter for screening mammogram for malignant neoplasm of breast (principal)
CPT/HCPCS: 77063; 77067